=== PATIENT | male | born 1960 | race Caucasian/White ===

== ENCOUNTER 2023-03-20 13:41 | Outpatient (RCR) | payer OTHER, SELFPAY | END 2023-06-29 16:50 | disposition home or self-care (01) | LOC: PT 13:41 | PROVIDERS: Visit Provider Nurse Practitioner Family | DX: S46.001D Unspecified injury of muscle(s) and tendon(s) of the rotator cuff of right shoulder, subsequent encounter (principal) | CPT/HCPCS: 97010; 97014; 97110; 97140; 97161; G0283 ==

== ENCOUNTER 2023-05-30 12:32 | Outpatient (OUT) | payer OTHER, SELFPAY ==
--- NOTE | 2023-05-30 12:41 | MR_ITS ---
[address] [address] Patient Name: NELLA FLORES MRN: [id number] date: 1960 Sex: M Assigned Patient Location: MRI Current Patient Location: Accession/Order Number: [id number] Exam Date: 05/30/2023 12:56 Report Date: 05/31/2023 06:44 At the request of: SHLOMO QUINTERO Procedure: MR shoulder RT wo con EXAMINATION: MR shoulder RT wo con HISTORY: Right Elbow Epicondylitis , Right Bicep Rupture with repair 4 months ago , chronic right shoulder pain since injury 5 months ago COMPARISON: No relevant comparison available. TECHNIQUE: A variety of imaging planes and parameters were utilized for visualization of suspected pathology. Imaging was performed without or with contrast as indicated by examination type. FINDINGS: ROTATOR CUFF REGION CUFF TENDONS: Prominently increased signal intensity in the supraspinatus tendon indicates tendon degeneration and/or tendinitis. No shiraz tear is seen. CUFF MUSCLES: Normal appearing muscles. DELTOID: Normal. No significant atrophy or tear. LONG BICEPS TENDON: No abnormal signal, attrition, or tear. LABRUM/BICEPS ANCHOR SUPERIOR: No visible labral tear or biceps anchor pathology. ANTERIOR/INFERIOR: No visible tear or attrition. POSTERIOR: No posterior labrum abnormality. CAPSULE Normal. No visible capsular laxity or thickening. AC JOINT REGION AC JOINT: Moderate osteoarthropathy with mild-moderate narrowing of the underlying coracoacromial arch. AC LIGAMENTS: Normal acromioclavicular ligament. CC LIGAMENTS: Normal coracoclavicular ligaments. ACROMION: Normal horizontal (Type I) configuration. SUBACROMIAL BURSA: Normal. No significant effusion. HYALINE CARTILAGE: Normal. No visible cartilage narrowing or focal defect. OTHER BONES: Normal proximal humerus, glenoid, and coracoid. OTHER OBSERVATIONS: Negative. No other significant findings or glenohumeral effusion. MR/MR shoulder RT wo con IMPRESSION: 1. High-grade strain/tendinopathy of the supraspinatus tendon. Partial tear is felt less likely. 2. Moderate degenerative changes of acromioclavicular joints impinging upon the superior rotator cuff. 3. Unremarkable biceps tendon. Electronically authenticated by: JENI QUIROGA Date: 05/31/2023 06:44
== END 2023-05-30 12:33 | disposition home or self-care (01) ==
LOC: MRI 12:33
PROVIDERS: Visit Provider Nurse Practitioner Family
DX: M77.11 Lateral epicondylitis, right elbow (principal); S46.211A Strain of muscle, fascia and tendon of other parts of biceps, right arm, initial encounter
CPT/HCPCS: 73221

== ENCOUNTER 2024-03-14 15:51 | Outpatient (RCR) | payer OTHER, SELFPAY | END 2024-09-05 10:08 | disposition home or self-care (01) | LOC: PT 15:51 | PROVIDERS: Visit Provider Nurse Practitioner Family | DX: S46.011D Strain of muscle(s) and tendon(s) of the rotator cuff of right shoulder, subsequent encounter (principal); M25.511 Pain in right shoulder; M77.11 Lateral epicondylitis, right elbow; M75.21 Bicipital tendinitis, right shoulder; M19.011 Primary osteoarthritis, right shoulder; S46.211D Strain of muscle, fascia and tendon of other parts of biceps, right arm, subsequent encounter | CPT/HCPCS: 97110; 97140; 97161 ==